=== PATIENT | male | born 1965 | race Caucasian/White ===

== ENCOUNTER 2020-05-04 14:21 | Emergency (ER) | payer BC ==
--- NOTE | 2020-05-04 14:53 | ED Physician Documentation ---
PD HPI SKIN - Stated complaint Stated Complaint: R LEG WOUND - Chief complaint Chief Complaint: Wound - History obtained from History obtained from: Patient - History of Present Illness Timing - onset: How many days ago (3) Timing - duration: Days (had a small superficial abrasion type wound on right valadez that had small scab. This came loose and off. Then has had 3 days of small dotted near-vesicle type lesions expanding around it. No ulceration per se. No drainage.) Timing - details: Gradual onset Location: RLE (anterior right lower leg.) Quality / character: Painful, Discolored (red), Vesicular (without coming to fully vesicles/fluid drainage, but are dotted little bumps. No other patches of it on leg/thigh.). No: Draining Associated symptoms: No: Fever, Myalgias Contributing factors: Other (no noted topical irritations pt is aware of.). No: Recent illness Similar symptoms before: Diagnosis (has had skin infections develop on legs/feet before so is wary of this one progressing.) Review of Systems Constitutional: denies: Fever, Chills Nose: denies: Rhinorrhea / runny nose, Congestion Throat: denies: Sore throat Respiratory: denies: Cough GI: denies: Nausea, Vomiting, Diarrhea Skin: reports: Lesions Neurologic: reports: Numbness (chronic diabetic neuropathy of feet/lower legs.). denies: Focal weakness PD PAST MEDICAL HISTORY - Past Medical History Cardiovascular: None Respiratory: None Neuro: Peripheral neuropathy Endocrine/Autoimmune: Type 2 diabetes - Present Medications Home Medications: Ambulatory Orders Medication Instructions Recorded Confirmed Doxycycline Monohydrate 150 mg PO BID #14 cap 05/04/20 Mupirocin Calcium [Mupirocin] 1 applic TP TID #15 gm 05/04/20 - Allergies Allergies/Adverse Reactions: Allergies Allergy/AdvReac Type Severity Reaction Status Date / Time latex AdvReac Rash Verified 05/04/20 14:51 PD ED PE NORMAL - Vitals Vital signs reviewed: Yes - General General: Alert and oriented X 3, No acute distress, Well developed/nourished - Derm Derm: Normal color, Warm and dry - Extremities Extremities: Other (right anterior lower leg with 4 cm patch of small bumpy near-vesicular lesions without any fluid/drainage on a red base. No underlying inderation. ) - Neuro Neuro: No motor deficit Results - Vitals Vitals: Vital Signs - 24 hr 05/04/20 05/04/20 14:47 16:02 Temperature 36.2 C L Heart Rate 75 75 Respiratory 14 14 Rate Blood Pressure 133/73 H 133/75 H O2 Saturation 98 99 Oxygen O2 Source Room air PD MEDICAL DECISION MAKING - ED course Complexity details: considered differential (increasing rash without any contact dermatitis source. concern for infection and I think it would appear likely staph appearing. ), d/w patient Departure - Departure Disposition: 01 Home, Self Care Clinical Impression: Bacterial skin infection of leg Qualifiers: Laterality: right Qualified Code(s): L03.115 - Cellulitis of right lower limb Condition: Stable Record reviewed to determine appropriate education?: Yes Instructions: ED Staph Infec Abx Tx Only Prescriptions: Doxycycline Monohydrate 150 mg PO BID #14 cap Mupirocin Calcium [Mupirocin] 1 applic TP TID #15 gm Comments: Clean the area 2-3 times daily with soap and water or very dilute peroxide. Apply mupirocin topical antibiotic lightly to the area after that. You can apply dressing to protect the area. Doxycycline oral antibiotic twice daily for a week. I would anticipate improvement over the next several days and resolution by 3 to 5 days. Recheck if not. Return if worsening significantly. Tylenol if needed for pains. Discharge Date/Time: 05/04/20 16:03
[2020-05-04] MEDS ORDERED: MUPIROCIN 2% OINT 1 GM TOP STA (15:14)
[2020-05-04] MEDS ORDERED: DOXYCYCLINE 100 MG TABLET PO STA (15:14)
[2020-05-04 16:03] VITALS: BP 133/75
== END 2020-05-04 16:03 | disposition home or self-care (01) ==
LOC: ED 14:21
DX: L03.115 Cellulitis of right lower limb (principal); E11.42 Type 2 diabetes mellitus with diabetic polyneuropathy
CPT/HCPCS: 99282; 99283; A9270

== ENCOUNTER 2020-12-08 08:00 | Outpatient (CLI) | payer BC ==
--- NOTE | 2020-12-08 13:18 | XRAY Report ---
PROCEDURE: Chest 2 View X-Ray INDICATIONS: COUGH TECHNIQUE: 2 view(s) of the chest. COMPARISON: None. FINDINGS: SUPPORT DEVICES: None. LUNG/PLEURA: No focal consolidation or pulmonary edema. No pleural effusion or space-occupying pneumo thorax. MEDIASTINUM: The cardiomediastinal silhouette is within normal limits. BONES/SOFT TISSUES: No acute abnormality. IMPRESSION: 1.No acute cardiopulmonary abnormality. Reviewed by: Alexander Villasenor MD on 12/08/2020 1:17 PM PDT Approved by: Alexander Villasenor MD on 12/08/2020 1:17 PM PDT Station ID: [id number]
== END 2020-12-08 23:59 | disposition home or self-care (01) ==
LOC: DI.N 08:00
PROVIDERS: ATTEND Family Medicine
DX: R05.9 Cough, unspecified (principal); Z20.822 Contact with and (suspected) exposure to COVID-19

== ENCOUNTER 2020-12-08 11:21 | Outpatient (CLI) | payer BC | END 2020-12-08 23:59 | disposition home or self-care (01) | LOC: LAB.N 11:21 | PROVIDERS: ATTEND Family Medicine | DX: R05.9 Cough, unspecified (principal); Z20.822 Contact with and (suspected) exposure to COVID-19 ==

== ENCOUNTER 2021-04-17 13:49 | Emergency (ER) | payer BC ==
--- NOTE | 2021-04-17 14:19 | ED Physician Documentation ---
History of Present Illness - Stated complaint Stated Complaint: RT FT SWELLING - Chief complaint Chief Complaint: Ext Problem - Additonal information Additional information: 56-year-old male presents emergency department for evaluation of ulcer formation on the top of his right great toe as well as the second toe. Reports that it began after kneeling for a long time while working on the floor. He is a diabetic with poor control. Reports that his last known A1c was approximately 9. Patient has neuropathy at baseline but does have some increasing pain and swelling in both of these toes predominantly the second. No history of osteom yelitis in the past. No fevers Review of Systems Constitutional: denies: Fever, Chills Nose: reports: Reviewed and negative Throat: reports: Reviewed and negative Cardiac: reports: Reviewed and negative Respiratory: reports: Reviewed and negative : reports: Reviewed and negative Skin: reports: Lesions Musculoskeletal: reports: Reviewed and negative PD PAST MEDICAL HISTORY - Past Medical History Cardiovascular: None Respiratory: None Neuro: Peripheral neuropathy Endocrine/Autoimmune: Type 2 diabetes - Present Medications Home Medications: Ambulatory Orders Medication Instructions Recorded Confirmed Baclofen [Lioresal] 10 mg PO TID 04/17/21 04/17/21 Dapagliflozin Propanediol [Farxiga] 10 mg PO DAILY 04/17/21 04/17/21 Duloxetine HCl [Cymbalta] 60 mg PO DAILY 04/17/21 04/17/21 Gabapentin [Neurontin] 1,200 mg PO TID 04/17/21 04/17/21 Insulin Degludec [Tresiba 32 units SQ DAILY 04/17/21 04/17/21 Flextouch U-100] Metformin HCl [Metformin ER 1,000 mg PO BID 04/17/21 04/17/21 Osmotic] Nortriptyline [Pamelor] 75 mg ORAL HS 04/17/21 04/17/21 Sulfamethox/Trimeth 800/160 1 tablet PO BID 10 Days #20 tablet 04/17/21 [Bactrim Ds] Tamsulosin [Flomax] 0.4 mg PO DAILY 04/17/21 04/17/21 cephALEXin [Keflex] 500 mg PO Q6H #40 cap 04/17/21 traMADol [Ultram] 150 mg PO BID 04/17/21 04/17/21 traZODone [Desyrel] 100 mg PO HS 04/17/21 04/17/21 - Allergies Allergies/Adverse Reactions: Allergies Allergy/AdvReac Type Severity Reaction Status Date / Time latex AdvReac Rash Verified 04/17/21 13:52 - Social History Does the pt smoke?: No Smoking Status: Never smoker Does the pt drink ETOH?: Yes Does the pt have substance abuse?: No - Immunizations Immunizations are current?: Yes - POLST Patient has POLST: No PD ED PE EXPANDED - General General: Alert, No acute distress, Well developed/nourished - Extremities Extremities: Right toe(s) (Superficial healing ulceration on the right Index toe with scab overlying. The great toe has a 0.25 cm ulceration shallow base yellow eschar. Great and index toe with moderate erythema but no drainage.) Results - Vitals Vitals: Vital Signs - 24 hr 04/17/21 13:52 Temperature 36.7 C Heart Rate 87 Respiratory 16 Rate Blood Pressure 149/77 H O2 Saturation 99 Oxygen O2 Source Room air - Rads (name of study) right foot Radiology: Final report received (First proximal phalangeal periarticular erosion.) PD MEDICAL DECISION MAKING - ED course Complexity details: reviewed results, re-evaluated patient, considered differential, d/w patient ED course: 56-year-old male presents emergency department for evaluation of ulcers that have formed on the top of his great and index toe 4 days ago after kneeling for prolonged period of time. The great toe and second toe have some generalized erythema but no drainage from the ulcers. X-ray is suggestive of early osteomyelitis. Patient is scheduled to see Dr. Mcguire in follow-up in 48 hours. In the interim he will be started on Keflex and Bactrim. He is advised that he likely will require MRI of this extremity as well as referral to orthopedics or podiatry for longer-term management of osteomyelitis. Return precautions otherwise discussed. Departure - Departure Disposition: 01 Home, Self Care Clinical Impression: Cellulitis of toe of right foot Osteomyelitis Qualifiers: Osteomyelitis type: unspecified type Osteomyelitis location: foot Laterality: right Qualified Code(s): M86.9 - Osteomyelitis, unspecified Condition: Stable Record reviewed to determine appropriate education?: Yes Follow-Up: Chirag Mcguire MD [Primary Care Provider] - Prescriptions: Sulfamethox/Trimeth 800/160 [Bactrim Ds] 1 tablet PO BID 10 Days #20 tablet cephALEXin [Keflex] 500 mg PO Q6H #40 cap Comments: Gonzalo you were seen today in the emergency department for ulcers that have formed on the top of your big toe and your index toe. Unfortunately the x-ray shows early changes to the bone of the big toe that suggest osteomyelitis or infection within the bone. I sent a prescription for some Keflex and Bactrim to the [facility] in [place]. Fill the prescription and begin taking as directed this evening. When you see Dr. Mcguire in the next 48 hours I do recommend outpatient referral to either podiatry or orthopedics. You may also benefit from an MRI of this toe and foot. If despite taking the antibiotics you have worsening symptoms, swelling or re dness then please return to the ER. I would like you to soak the foot in warm Epson salt solution or Betadine once or twice a day. Following that you can apply the mupirocin ointment.
--- NOTE | 2021-04-17 14:54 | XRAY Report ---
PROCEDURE: Foot 3 View RT INDICATIONS: ULCERS GREAT AND 2ND TOE; OSTEOMYELITIS? TECHNIQUE: 3 views of the foot were acquired. COMPARISON: None FINDINGS: Bones: No fractures or dislocations. No suspicious bony lesions. There is a 6 mm periarticular eros ion involving the base of first proximal phalanx noted. Remainder of the osseous structures are appro priately mineralized. No evidence of fracture. Soft tissues: No tibiotalar joint effusion. Achilles tendon appears normal. IMPRESSION: First proximal phalangeal periarticular erosion. Clinical history, osteomyelitis versus inflammatory arthritis are both considerations. Consider follow-up MRI Reviewed by: Ajay Mendez MD on 04/17/2021 1:53 PM AKST Approved by: Ajay Mendez MD on 04/17/2021 1:53 PM AKST Station ID: [id number]
[2021-04-17 15:59] VITALS: BP 118/75
== END 2021-04-17 16:00 | disposition home or self-care (01) ==
LOC: ED 13:49
DX: L03.115 Cellulitis of right lower limb (principal); M86.9 Osteomyelitis, unspecified; E11.65 Type 2 diabetes mellitus with hyperglycemia; Z79.4 Long term (current) use of insulin
CPT/HCPCS: 99283

== ENCOUNTER 2021-06-13 08:51 | Outpatient (CLI) | payer BC ==
[2021-06-13] MEDS ORDERED: GADOBUTROL 10 MMOL/10 ML VIAL ONE (09:36)
[2021-06-13] MEDS ORDERED: GADOBUTROL 10 MMOL/10 ML VIAL IVP ONE (16:38)
--- NOTE | 2021-06-13 17:11 | MRI Report ---
PROCEDURE: Foot RT W/WO INDICATIONS: CELLULITIS OF RIGHT FOOT/TOES CONTRAST: IV CONTRAST: Gadavist ml: 10 TECHNIQUE: Noncontrast coronal T1 spin echo and STIR, sagittal T1 spin echo with fat saturation and STIR, axial T1 spin echo and T2 fast spin echo with fat saturation. After the administration of contrast, axial/ sagittal/coronal T1 spin echo with fat saturation through the right foot. COMPARISON: Reference is made to the right toe radiographs dated May 31, 2021. FINDINGS: Image quality: Excellent. Bones: T2 hyperintense/T1 hypointense signal is seen in the second middle and proximal phalanges, whi ch is of contrast enhancement and are concerning for osteomyelitis. The third distal phalanx appears to demonstrate normal bone marrow signal. Central cortical irregularity of the distal aspect, first p roximal phalanx, which may reflect degenerative change. A cortical erosion versus fibrocystic change in the medial aspect of the first proximal phalanx.. No abnormal intraosseous enhancement. Soft tissues: Reticulated and confluent T2 hyperintense signal within the dorsal soft tissues and saravanan rounding the second digit, which exhibits contrast enhancement and is compatible with cellulitis. The scanned muscles demonstrate fatty atrophy with T2 hyperintense signal, which may reflect reactive edema. IMPRESSION: 1. Osteomyelitis of the second middle and proximal phalanges as detailed above. 2. Dorsal and second digit soft tissue cellulitis. 3. Central cortical irregularity in the distal aspect of the first proximal phalanx, which may reflec t degenerative change. Reviewed by: Alexander Villasenor MD on 06/13/2021 5:10 PM PDT Approved by: Alexander Villasenor MD on 06/13/2021 5:10 PM PDT Station ID: [id number]
== END 2021-06-13 08:52 | disposition home or self-care (01) ==
LOC: DI 08:51
PROVIDERS: ATTEND Student in an Organized Health Care Education/Training Program
DX: L03.031 Cellulitis of right toe (principal); M86.9 Osteomyelitis, unspecified; R93.6 Abnormal findings on diagnostic imaging of limbs
CPT/HCPCS: 73720; A9585

== ENCOUNTER 2022-08-03 19:06 | Outpatient (CLI) | payer BC ==
--- NOTE | 2022-08-04 03:18 | Ultrasound Report ---
PROCEDURE: Testicle INDICATIONS: LUMP IN SCROTUM BEHIND LEFT TESTICLE TECHNIQUE: Real-time scanning was performed of the scrotum and testicles, with image documentation. Color and p ulse Doppler interrogation was performed of both testicles. COMPARISON: None. FINDINGS: Right: Testicle measures 3.5 x 2.5 x 3.2 cm and appears homogenous in echotexture. Epididymis is no rmal in overall size and morphology. There is a small hydrocele. No varicoceles. Overlying scrotal s kin is normal in thickness. Left: Testicle measures 3.5 x 2.1 x 3.1 cm and appears homogeneous in echotexture. Epididymis is no rmal in overall size and morphology. No hydrocele or varicoceles. Overlying scrotal skin is normal in thickness. There is a hypoechoic soft tissue nodule posterior and lateral to the left testicle. Doppler: Color and pulse Doppler demonstrate normal and symmetric arterial flow in both testicles. IMPRESSION: 1. Bilateral hydroceles. 2. Soft tissue tissue nodule posterior and lateral to the left testicle and area of palpable abnormal ity. The findings are nonspecific and may reflect sequelae of epididymitis. 3. No evidence of testicular torsion. Reviewed by: Tye Montes MD on 08/04/2022 3:16 AM PDT Approved by: Tye Montes MD on 08/04/2022 3:16 AM PDT Station ID: [id number]
== END 2022-08-03 19:07 | disposition home or self-care (01) ==
LOC: DI 19:06
PROVIDERS: ATTEND Student in an Organized Health Care Education/Training Program
DX: N43.3 Hydrocele, unspecified (principal); N50.89 Other specified disorders of the male genital organs

== ENCOUNTER 2023-04-16 15:25 | Outpatient (CLI) | payer OTHER | END 2023-04-16 23:59 | disposition short-term general hospital (02) | LOC: EMS 15:25 | DX: R10.13 Epigastric pain (principal); R10.11 Right upper quadrant pain; R10.816 Epigastric abdominal tenderness; R10.813 Right lower quadrant abdominal tenderness; R11.2 Nausea with vomiting, unspecified | CPT/HCPCS: A0425; A0429 ==